=== PATIENT | male | born 1960 | race Hispanic/Latino ===

== ENCOUNTER → 2018-07-07 | Day surgery (SDC) | payer BC ==
[2018-07-06 11:05] LABS: BASOPHILS # (AUTO) 0.1 (0.0-0.1); BASOPHILS % 0.9 % (0.0-1.0); EOSINOPHILS # (AUTO) 0.2 (0.0-0.4); EOSINOPHILS % 3.4 % (0.0-6.0); HEMATOCRIT 39.6 % (38.2-49.6); HEMOGLOBIN 13.2 g/dL (14.0-18.0); LYMPHOCYTES # (AUTO) 1.2 (1.0-3.2); LYMPHOCYTES % 18.7 % (18.0-39.1); MEAN CORPUSCULAR HEMOGLOBIN 32.4 pg (28-32); MEAN CORPUSCULAR HGB CONC 33.3 g/dL (31-35); MEAN CORPUSCULAR VOLUME 97.1 fL (81-99); MONOCYTES # (AUTO) 0.5 (0.2-0.8); MONOCYTES % 7.4 % (4.4-11.3); NEUTROPHILS # (AUTO) 4.5 (2.1-6.9); NEUTROPHILS % 69.1 % (38.7-80.0); PLATELET COUNT 195 x10e3/uL (140-360); RED BLOOD COUNT 4.08 x10e6/uL (4.3-5.7); RED CELL DISTRIBUTION WIDTH 12.3 % (11.7-14.4)
[2018-07-06 11:28] LABS: ALBUMIN/GLOBULIN RATIO 1.3 (0.8-2.0); ANION GAP 15.6 mmol/L (8-16); CALCIUM 9.5 mg/dL (8.4-10.2); CREATININE, SERUM 1.25 mg/dL (0.72-1.25); POTASSIUM 4.6 mmol/L (3.5-5.1)
[~2018-07-07] VITALS: Ht 172.7 cm; Wt 82.6 kg
[2018-07-07] VITALS (18 sets, daily range): BP systolic 89–128; BP diastolic 61–91
[~2018-07-07] MED LIST: ALPRAZOLAM 0.5 MG TAB ONE; ASPIR 8181 MG PO; ATORVASTATIN CA20 MG PO; BISOPROLOL-HCT1 EAC1 PO; DIPHENHYDRAMINE HCL 25 MG CAP ONE; FENTANYL CITRATE/PF 100MCG/2 ML INJ ONE; FINASTERIDE5 MG PO; GLIPIZIDE5 MG PO; HEPARIN SOD (PORCINE) 1000 UNIT/ML 30ML ONE; HEPARIN SOD/SOD CHLORIDE 2,000 ML ONE; IOPAMIDOL 300MG/ML 100 ML INFUS..BTL IV ONE; IOPAMIDOL 300MG/ML 50ML INFUS..BTL IV ONE; LIDOCAINE HCL 1% LOCAL INJ 20 ML VIAL ONE; LISINOPRIL10 MG PO; LOVASTATIN40 MG PO; METFORMIN HCL500 M2 PO; MIDAZOLAM HCL 2 MG/2 ML VIAL ONE; NITROGLYCERIN/D5W 200 MCG/ML 250 ML ONE; PLAVIX75 MG PO; SODIUM CHLORIDE 0.9% 1000ML 1,000 ML ONE; TICAGRELOR 90 MG TABLET ONE; VERAPAMIL HCL 2.5 MG/ML 2 ML VIAL ONE; VITAMIN D32000 UNIT PO
--- NOTE | 2018-07-07 13:55 | Operative Report ---
DATE OF PROCEDURE: July 07, 2018 INDICATIONS: Peripheral arterial disease with severe claudication and ulceration of the right lower extremity. PROCEDURES PERFORMED 1. Abdominal aorta catheter placement with abdominal aortogram. 2. Bilateral lower extremity angiogram. 3. Selective catheter placement from the left femoral artery to the right superficial femoral artery. 4. Additional 3rd-order catheter placement from the left femoral artery to the right anterior tibial artery. 5. Atherectomy and drug-coated balloon angioplasty of the right femoral artery. 6. Secondary thrombectomy of the right femoral artery. 7. Deployment of left groin Perclose. COMPLICATIONS: None. RECOMMENDATIONS: Staged intervention from right anterior tibial pedal access and intervention on the occluded right popliteal artery. Access was obtained in the left femoral artery. A 6-Russian sheath was placed. Abdominal aortogram demonstrated widely patent abdominal aorta, renal arteries and iliacs bilaterally. The femoral arteries could not be well visualized. The catheter was then advanced from the left femoral artery to the right superficial femoral artery (3rd-order catheter placement), 99% stenosis proximal to previously placed stent, in-stent restenosis of 50% to 70%. Distal to the stent, the popliteal vessel was occluded. However, the distal vessels could not be seen. The catheter was then advanced from the left femoral artery to the right anterior tibial artery with collaterals filling the anterior tibial and peroneal arteries with 2-vessel runoff to the right foot which was feeble. Posterior tibial artery was occluded. The left femoral artery had diffuse 50% stenosis and 90% stenosis of ostia of left anterior tibial artery. Left posterior tibial artery was occluded. A decision was made to intervene on the right femoral artery. The patient received 8,000 units of intravenous heparin and oral Brilinta for anticoagulation. The sheath was exchanged to a 45-cm sheath advanced from the left femoral artery to the right superficial femoral artery. The lesions were crossed with a Glidewire, which was exchanged to a ViperWire. Orbital atherectomy with a 1.25-mm Sultana was performed. Visible thrombus necessitating secondary manual thrombectomy was performed. Balloon angioplasty with a 6 x 120 mm Lutonix drug-coated balloon. Excellent end result, less than 10% residual stenosis. Left groin sheath was removed. Perclose was applied. Patient was discharged home same day. Job#: [id number]
== END | disposition home or self-care (01) ==
LOC: CATH LAB 08:21
PROVIDERS: ATTEND Internal Medicine Interventional Cardiology
DX: I70.238 Atherosclerosis of native arteries of right leg with ulceration of other part of lower leg (principal); L97.819 Non-pressure chronic ulcer of other part of right lower leg with unspecified severity; I25.118 Atherosclerotic heart disease of native coronary artery with other forms of angina pectoris; R03.0 Elevated blood-pressure reading, without diagnosis of hypertension; E78.00 Pure hypercholesterolemia, unspecified; E11.9 Type 2 diabetes mellitus without complications; Z01.812 Encounter for preprocedural laboratory examination; Z79.84 Long term (current) use of oral hypoglycemic drugs; Z79.02 Long term (current) use of antithrombotics/antiplatelets; Z79.82 Long term (current) use of aspirin; Z89.429 Acquired absence of other toe(s), unspecified side
CPT/HCPCS: 36247; 36415; 37186; 37225; 75630; 80053; 85025; C1724; C1725; C1769 ×2; C1887; C2623; J1644; J2001; J2250; J7030; Q9967 ×2; 37228; 37229

== ENCOUNTER → 2018-08-11 | Day surgery (SDC) | payer BC ==
[2018-08-10 11:16] LABS: BASOPHILS # (AUTO) 0.1 (0.0-0.1); BASOPHILS % 1.1 % (0.0-1.0); EOSINOPHILS # (AUTO) 0.2 (0.0-0.4); EOSINOPHILS % 3.2 % (0.0-6.0); HEMOGLOBIN 12.5 g/dL (14.0-18.0); LYMPHOCYTES # (AUTO) 1.3 (1.0-3.2); LYMPHOCYTES % 19.8 % (18.0-39.1); MEAN CORPUSCULAR HEMOGLOBIN 32.5 pg (28-32); MEAN CORPUSCULAR HGB CONC 32.9 g/dL (31-35); MEAN CORPUSCULAR VOLUME 98.7 fL (81-99); MONOCYTES # (AUTO) 0.5 (0.2-0.8); MONOCYTES % 8.3 % (4.4-11.3); NEUTROPHILS # (AUTO) 4.3 (2.1-6.9); NEUTROPHILS % 67.4 % (38.7-80.0); PLATELET COUNT 181 x10e3/uL (140-360); RED BLOOD COUNT 3.85 x10e6/uL (4.3-5.7); RED CELL DISTRIBUTION WIDTH 12.2 % (11.7-14.4)
[2018-08-10 11:35] LABS: INR 0.88; PROTHROMBIN TIME 12.8 seconds (11.9-14.5)
[2018-08-10 11:42] LABS: ALBUMIN/GLOBULIN RATIO 1.1 (0.8-2.0); ANION GAP 14.4 mmol/L (8-16); CALCIUM 9.8 mg/dL (8.4-10.2); CREATININE, SERUM 1.28 mg/dL (0.72-1.25); POTASSIUM 5.4 mmol/L (3.5-5.1)
[~2018-08-11] VITALS: Ht 172.7 cm; Wt 83.5 kg
[2018-08-11] VITALS (13 sets, daily range): BP systolic 118–148; BP diastolic 50–82
[~2018-08-11] MED LIST changes: -IOPAMIDOL 300MG/ML 50ML INFUS..BTL IV ONE; -LIDOCAINE HCL 1% LOCAL INJ 20 ML VIAL ONE; +LIDOCAINE HCL 2% LOCAL 20 ML VIAL ONE; +SODIUM CHLORIDE 0.9% 1000ML 0 ML ONE; -TICAGRELOR 90 MG TABLET ONE
--- NOTE | 2018-08-11 15:33 | Operative Report ---
DATE OF PROCEDURE: August 11, 2018 INDICATIONS: Peripheral arterial disease and claudication of the right lower extremity. PROCEDURES PERFORMED: 1. Ultrasound-guided access in the right dorsalis pedis artery with unilateral extremity angiogram. 2. Attempted atherectomy of the right fem-pop and anterior tibial arteries. Access obtained in the right dorsal pedis artery using ultrasound guidance. A 6-Czech sheath was placed. The patient received 8000 units of heparin for anticoagulation. Complete occlusion of previously placed ostial right anterior tibial stent was noted without reconstitution. Attempts were made to cross the chronic total occlusion in the distal right popliteal artery. However, the wire continued to remain subintimal, unable to re-enter the true lumen. Atherectomy procedure was aborted. TR band applied. Patient discharged home same day. Job#: [id number]
== END | disposition home or self-care (01) ==
LOC: CATH LAB 10:17
PROVIDERS: ATTEND Internal Medicine Interventional Cardiology
DX: I70.211 Atherosclerosis of native arteries of extremities with intermittent claudication, right leg (principal); I70.92 Chronic total occlusion of artery of the extremities; Z95.820 Peripheral vascular angioplasty status with implants and grafts; E78.00 Pure hypercholesterolemia, unspecified; I25.118 Atherosclerotic heart disease of native coronary artery with other forms of angina pectoris; I10 Essential (primary) hypertension; E11.9 Type 2 diabetes mellitus without complications; Z01.812 Encounter for preprocedural laboratory examination; Z79.84 Long term (current) use of oral hypoglycemic drugs; Z79.02 Long term (current) use of antithrombotics/antiplatelets; Z79.82 Long term (current) use of aspirin; Z89.429 Acquired absence of other toe(s), unspecified side
CPT/HCPCS: 36415 ×2; 37225; 80053; 82948; 85025; 85610; J1644; J2001; J2250; J7030; Q9967; C1766

== ENCOUNTER 2018-09-11 12:15 | Observation (INO) | payer BC ==
[2018-09-10 16:51] LABS: BASOPHILS # (AUTO) 0.1 (0.0-0.1); BASOPHILS % 1.2 % (0.0-1.0); EOSINOPHILS # (AUTO) 0.2 (0.0-0.4); EOSINOPHILS % 2.3 % (0.0-6.0); HEMATOCRIT 40.5 % (38.2-49.6); HEMOGLOBIN 13.3 g/dL (14.0-18.0); LYMPHOCYTES # (AUTO) 1.2 (1.0-3.2); LYMPHOCYTES % 19.2 % (18.0-39.1); MEAN CORPUSCULAR HEMOGLOBIN 32.1 pg (28-32); MEAN CORPUSCULAR HGB CONC 32.8 g/dL (31-35); MEAN CORPUSCULAR VOLUME 97.8 fL (81-99); MONOCYTES # (AUTO) 0.4 (0.2-0.8); MONOCYTES % 6.8 % (4.4-11.3); NEUTROPHILS # (AUTO) 4.5 (2.1-6.9); NEUTROPHILS % 70.2 % (38.7-80.0); PLATELET COUNT 207 x10e3/uL (140-360); RED BLOOD COUNT 4.14 x10e6/uL (4.3-5.7); RED CELL DISTRIBUTION WIDTH 12.5 % (11.7-14.4)
[2018-09-10 17:10] LABS: ALBUMIN 4.2 g/dL (3.5-5.0); ALBUMIN/GLOBULIN RATIO 1.2 (0.8-2.0); ANION GAP 16.1 mmol/L (8-16); CALCIUM 9.5 mg/dL (8.4-10.2); CREATININE, SERUM 1.4 mg/dL (0.72-1.25); POTASSIUM 5.1 mmol/L (3.5-5.1)
[~2018-09-11] VITALS: Ht 172.7 cm; Wt 83.9 kg
[2018-09-11] VITALS (12 sets, daily range): BP systolic 118–163; BP diastolic 63–87
[~2018-09-11 12:15] MED LIST changes: -ALPRAZOLAM 0.5 MG TAB ONE; -DIPHENHYDRAMINE HCL 25 MG CAP ONE; -FENTANYL CITRATE/PF 100MCG/2 ML INJ ONE; -HEPARIN SOD (PORCINE) 1000 UNIT/ML 30ML ONE; -HEPARIN SOD/SOD CHLORIDE 2,000 ML ONE; -IOPAMIDOL 300MG/ML 100 ML INFUS..BTL IV ONE; -LIDOCAINE HCL 2% LOCAL 20 ML VIAL ONE; -MIDAZOLAM HCL 2 MG/2 ML VIAL ONE; -NITROGLYCERIN/D5W 200 MCG/ML 250 ML ONE; -SODIUM CHLORIDE 0.9% 1000ML 0 ML ONE; -SODIUM CHLORIDE 0.9% 1000ML 1,000 ML ONE; -VERAPAMIL HCL 2.5 MG/ML 2 ML VIAL ONE
[2018-09-11] MEDS ORDERED: MIDAZOLAM HCL 2 MG/2 ML VIAL ONE ×2 (15:17→15:51)
[2018-09-11] MEDS ORDERED: SODIUM CHLORIDE 0.9% 1000ML 1,000 ML ONE (15:18)
[2018-09-11] MEDS ORDERED: HEPARIN SOD/SOD CHLORIDE 2,000 ML ONE (15:18)
[2018-09-11] MEDS ORDERED: FENTANYL CITRATE/PF 100MCG/2 ML INJ ONE (15:18)
[2018-09-11] MEDS ORDERED: LIDOCAINE HCL 2% LOCAL 20 ML VIAL ONE (15:18)
[2018-09-11] MEDS ORDERED: IOPAMIDOL 370 MG/ML 200 ML INFUS..BTL INJ ONE ×2 (15:18→15:48)
[2018-09-11] MEDS ORDERED: ASPIRIN 325 MG TAB ONE (15:54)
[2018-09-11] MEDS ORDERED: PRASUGREL 10 MG TAB ONE (15:58)
[2018-09-11] MEDS ORDERED: NITROGLYCERIN/D5W 200 MCG/ML 250 ML ONE (16:01)
[2018-09-11] MEDS ORDERED: HEPARIN SOD (PORCINE) 1000 UNIT/ML 30ML ONE (16:01)
--- NOTE | 2018-09-11 19:33 | NUR ---
RECEIVED PATIENT FROM THE ELEVATOR DISPATCHER, PATIENT POSITIONED IN THE BED, HE STATED HE FELT THAT THE BANDAGE WAS BEING PULL BUT ONLY THE SHEET WAS FROM UNDER HIM WAS PULLED. AREA CHECKED WITH ELEVATOR DISPATCHER NURSE, SMALL ANIAK WAS PLACED BY HER BEFORE PATIENT ARRIVED TO THE FLOOR AND NOTED THAT BLOOD HAS SPREAD PASSED THE CIRCLED AREA. WILL CONTINUE TO MONITOR. CALL LIGHT IN REACH. REINSTRUCTED PATIENT NOT TO MOVE OR RAISE HIS HEAD UNTIL 10PM.
--- NOTE | 2018-09-11 20:19 | NUR ---
REPORT GIVEN TO ONCOMING NURSE. PATIENT CONTINUE RESTING. CALL LIGHT IN REACH. WAS ABLE TO EAT SOME FRUITS. WILL CONTINUE TO MONITOR.
--- NOTE | 2018-09-11 20:30 | NUR ---
received report on patient. pt awake, alert resting inbed. no distress. right groin cath site with scant amount of blood in dressing. site soft, non tender. no swelling or edema noted. pt informed of bedrest will 2200. pt verbalied understanding. bilat dorsalis pedis and post tibialis pulses noted with doppler.
[2018-09-12] VITALS: BP 126/62
[2018-09-12 04:00] VITALS: BP 116/79
--- NOTE | 2018-09-12 07:00 | NUR ---
received patient awake and alert in bed, no s/s of distress, dressing to right groin intact and no hematoma noted, bed low and locked, call cloud in reach will continue to monitor
[2018-09-12 07:30] VITALS: BP 116/79
[2018-09-12 08:00] VITALS: BP 120/56
[2018-09-12 12:28] VITALS: BP 133/68
--- NOTE | 2018-09-12 13:02 | Operative Report ---
DATE OF PROCEDURE: September 11, 2018 INDICATIONS: Coronary artery disease, abnormal stress test. PROCEDURES PERFORMED 1. Left heart catheterization, selective coronary angiography. 2. PTCA and stent placement to the mid right coronary artery. 3. Deployment right groin Perclose. COMPLICATIONS: None. RECOMMENDATIONS: Dual antiplatelet therapy for life. Access obtained of the right femoral artery. A 6-Armenian sheath was placed. Diagnostic coronary angiogram revealed patent stent in the left anterior descending artery. The circumflex and the mid and distal left anterior descending artery had diffuse 30 to 50% stenosis, proximal RCA 30 to 50%, and mid RCA 90%. A decision was made to intervene on the right coronary artery. The patient received heparin, Integrilin, and Brilinta for anticoagulation. The right coronary artery was cannulated using a JR4 guide. A short wire was advanced across the lesion for support. Primary stent 2.25 x 22 mm at 12 atmospheres was deployed, Resolute Thierno, no complications, less than 0% residual stenosis. ANDRE-3 flow. Right groin repaired using Perclose. Patient was discharged home same day. Job#: [id number]
== END 2018-09-12 13:56 | disposition home or self-care (01) ==
LOC: CATH LAB 12:15 → IMCU 20:00
PROVIDERS: ADMIT Internal Medicine Interventional Cardiology; ATTEND Internal Medicine Interventional Cardiology
DX: I25.118 Atherosclerotic heart disease of native coronary artery with other forms of angina pectoris (principal); I73.9 Peripheral vascular disease, unspecified; I10 Essential (primary) hypertension; E11.9 Type 2 diabetes mellitus without complications; E78.00 Pure hypercholesterolemia, unspecified; Z79.84 Long term (current) use of oral hypoglycemic drugs; Z01.812 Encounter for preprocedural laboratory examination
CPT/HCPCS: 36415 ×2; 80053; 82948; 85025; 92928; 93454; C1725; C1769; C1874; G0378 ×2; J1644; J2001; J2250; J7030; Q9967

== ENCOUNTER 2024-07-01 12:14 | Emergency (ER) | payer BC, MEDICARE ==
[~2024-07-01] VITALS: Ht 172.7 cm; Wt 83.9 kg
[2024-07-01 12:44] VITALS: PULSE 68; RESP 18; TEMP 98.2; O2SAT 98
[2024-07-01 14:00] LABS: ANION GAP 14.6 mmol/L (8-16); CALCIUM 9.4 mg/dL (8.4-10.2); CREATININE, SERUM 1.43 mg/dL (0.72-1.25); POTASSIUM 4.6 mmol/L (3.5-5.1)
== END 2024-07-01 14:34 | disposition home or self-care (01) ==
LOC: ER 12:23
DX: E87.5 Hyperkalemia (principal); I10 Essential (primary) hypertension; E11.65 Type 2 diabetes mellitus with hyperglycemia; E78.5 Hyperlipidemia, unspecified; I25.10 Atherosclerotic heart disease of native coronary artery without angina pectoris; I73.9 Peripheral vascular disease, unspecified
CPT/HCPCS: 36415; 80048; 99283